=== PATIENT | male | born 2000 | race Caucasian/White ===

== ENCOUNTER → 2022-07-17 | Outpatient (CLI) | payer OTHER ==
[~2022-07-17] MED LIST: PERC5TAB12 PO
== END ==
LOC: M SOG 15:55
PROVIDERS: ATTEND Orthopaedic Surgery Hand Surgery
DX: Z47.89 Encounter for other orthopedic aftercare (principal)

== ENCOUNTER 2022-07-19 06:56 | Day surgery (SDC) | payer OTHER ==
[~2022-07-19] VITALS: Ht 172.7 cm; Wt 86.2 kg
[~2022-07-19 06:56] MED LIST changes: +BACITRACIN OINTMENT 30GM TUBE As Ordered ONE; +BUPIVACAINE HCL 0.25% 30ML VIAL As Ordered ONE; +LIDOCAINE 1% MDV 20ML VIAL As Ordered ONE; -PERC5TAB12 PO
[2022-07-19] MEDS ORDERED: LIDOCAINE 2% 100MG/5ML SDV (FOR ANES.) As Ordered ONE (07:10)
[2022-07-19] MEDS ORDERED: propofoL 200 MG/20 ML VIAL As Ordered ONE (07:10)
[2022-07-19] MEDS ORDERED: ONDANSETRON 4MG 2ML VIAL As Ordered ONE (07:10)
[2022-07-19] MEDS ORDERED: KETOROLAC 60MG 2ML VIAL As Ordered ONE (07:10)
[2022-07-19] MEDS ORDERED: MIDAZOLAM INJ 2MG/2ML VIAL As Ordered ONE (07:11)
[2022-07-19] MEDS ORDERED: fentaNYL 100 MCG/2 ML INJECTION As Ordered ONE ×2 (07:11→09:13)
[2022-07-19] MEDS ORDERED: ceFAZolin 2 GM/D5W 50 ML IV BAG As Ordered ONE (07:21)
[2022-07-19] MEDS ORDERED: ceFAZolin SOD 2 GM in IV 1 EA IV ONE (07:30)
[2022-07-19] MEDS ORDERED: ROCURONIUM BROMIDE 50MG/5ML VIAL As Ordered ONE (08:11)
[2022-07-19] MEDS ORDERED: SUGAMMADEX SODIUM 500 MG/5 ML VIAL (BRIDION) As Ordered ONE (09:14)
[2022-07-19] MEDS ORDERED: PERC5TAB12 PO (09:38)
[2022-07-19] MEDS ORDERED: fentaNYL 100 MCG/2 ML INJECTION IV PRN (09:45)
[2022-07-19] MEDS ORDERED: LR 1,000 ML IV SCH (09:45)
[2022-07-19] MEDS ORDERED: ONDANSETRON 4MG 2ML VIAL IV PRN (09:45)
[2022-07-19] MEDS: oxyCODONE 5MG TAB PO PRN ×2 (10:00→10:30)
[2022-07-19 12:00] VITALS: BP 136/82
== END 2022-07-19 12:15 | disposition home or self-care (01) ==
LOC: M SDC 06:56
PROVIDERS: ATTEND Orthopaedic Surgery Hand Surgery
DX: S66.922A Laceration of unspecified muscle, fascia and tendon at wrist and hand level, left hand, initial encounter (principal); Y92.89 Other specified places as the place of occurrence of the external cause; Y99.9 Unspecified external cause status
CPT/HCPCS: 26356; 87635; J1100; J2405

== ENCOUNTER 2024-10-08 10:05 | Emergency (ER) | payer OTHER ==
[~2024-10-08] VITALS: Ht 172.7 cm; Wt 82.9 kg
[~2024-10-08 10:05] MED LIST changes: -BACITRACIN OINTMENT 30GM TUBE As Ordered ONE; -BUPIVACAINE HCL 0.25% 30ML VIAL As Ordered ONE; -LIDOCAINE 1% MDV 20ML VIAL As Ordered ONE; +PERC5TAB12 PO
[2024-10-08 11:45] LABS: BASO % 0.6 % (0.0-1.0); EOS # 0.2 10^3/uL (0.0-0.5); EOS % 2.5 % (0.0-3.0); HEMATOCRIT 42.4 % (42.0-52.0); HEMOGLOBIN 14.6 g/dl (13.5-17.5); LYMPH % 29.5 % (24.0-44.0); MEAN CORPUSCULAR HEMOGLOBIN 29.9 pg (27.0-33.0); MEAN CORPUSCULAR HGB CONC 34.4 g/dl (32.0-36.5); MEAN CORPUSCULAR VOLUME 86.9 fl (80.0-96.0); MONO # 0.7 10^3/uL (0.0-0.8); MONO % 9.8 % (2.0-8.0); NEUTROPHILS # 3.9 10^3/uL (1.5-8.5); NEUTROPHILS % 57.5 % (36.0-66.0); PLATELET COUNT, AUTOMATED 300 10^3/uL (150-450); RED BLOOD COUNT 4.88 10^6/uL (4.30-6.10); WHITE BLOOD COUNT 6.7 10^3/uL (4.0-10.0)
[2024-10-08 12:15] LABS: CK-MB VALUE MASS < 1.0 NG/ML (<3.6)
[2024-10-08 12:16] LABS: CPK CREATINE PHOSPHOKINASE 144 U/L (46-171); MB/CK RELATIVE INDEX 0.69 (< OR =4)
[2024-10-08 12:17] LABS: BLOOD UREA NITROGEN 15 MG/DL (9-23); CALCIUM LEVEL 9.5 MG/DL (8.5-10.1); CARBON DIOXIDE LEVEL 28 MMOL/L (20-31); CHLORIDE LEVEL 106 MMOL/L (98-107); CREATININE FOR GFR 0.97 MG/DL (0.70-1.30); GLOMERULAR FILTRATION RATE > 60.0 (>60); GLUCOSE, FASTING 84 MG/DL (60-100); POTASSIUM SERUM 4.4 MMOL/L (3.5-5.1); SODIUM LEVEL 141 MMOL/L (136-145)
[2024-10-08 14:00] VITALS: BP 142/86; TEMP 97.8; O2SAT 97
== END 2024-10-08 14:15 | disposition home or self-care (01) ==
LOC: EDBD 10:05 → M ED 10:05
DX: R07.9 Chest pain, unspecified (principal); R00.1 Bradycardia, unspecified